=== PATIENT | female | born 1995 | race Hispanic/Latino ===

== ENCOUNTER 2017-05-28 14:38 | Emergency (ER) | payer BC ==
[2017-05-28 14:49] VITALS: BP 125/76; PULSE 116; RESP 18; TEMP 99.7; O2SAT 100
[2017-05-28] MEDS ORDERED: Morphine 4 MG/ML VIAL ONE (16:08)
--- NOTE | 2017-05-28 16:17 | ED PDOC ---
Lower Extremity Pain/Injury Time Seen by Provider: 05/28/17 14:43 Chief Complaint (Nursing): Lower Extremity Problem/Injury Chief Complaint (Provider): Lower Extremity Problem/Injury History Per: Patient History/Exam Limitations: no limitations Onset/Duration Of Symptoms: Sudden Onset Current Symptoms Are (Timing): Still Present Additional Complaint(s): 21 year old female presents to the emergency department with a complaint of left ankle injury status post rolling ankle inward while playing soccer prior to arrival. Patient reported 10/10 pain and swelling to left ankle with localized pain. PMD: none provided Past Medical History Reviewed: Historical Data, Nursing Documentation, Vital Signs Vital Signs: Last Vital Signs Temp 99.7 F H 05/28/17 14:47 Pulse 116 H 05/28/17 14:47 Resp 18 05/28/17 14:47 BP 125/76 05/28/17 14:47 Pulse Ox 100 05/28/17 14:47 - Medical History Other PMH: Polycystic ovary syndrome - Surgical History Surgical History: No Surg Hx - Family History Family History: States: Unknown Family Hx - Social History Current smoker - smoking cessation education provided: No Alcohol: None Drugs: Denies - Home Medications Home Medications: Ambulatory Orders Medication Instructions Recorded oxyCODONE/Acetaminophen [Percocet 1 ea PO Q6H PRN #15 tab 05/28/17 5/325 mg Tab] - Allergies Allergies/Adverse Reactions: Allergies Allergy/AdvReac Type Severity Reaction Status Date / Time No Known Allergies Allergy Verified 05/28/17 14:47 Review of Systems ROS Statement: Except As Marked, All Systems Reviewed And Found Negative Musculoskeletal: Positive for: Foot Pain (left-sided ankle with swelling) Physical Exam - Reviewed Nursing Documentation Reviewed: Yes Vital Signs Reviewed: Yes - Physical Exam Appears: Positive for: Non-toxic, Uncomfortable Extremity: Positive for: Tenderness (lateral left ankle), Swelling (lateral left ankle). Negative for: Normal ROM (left foot), Deformity (left foot or ankle) Neurologic/Psych: Positive for: Alert, Oriented, Mood/Affect (tearful) - ECG O2 Sat by Pulse Oximetry: 100 (RA) Pulse Ox Interpretation: Normal Medical Decision Making Medical Decision Making: Initial Impression: Left ankle injury Initial Plan: * Morphine 4mg IM * Xray ankle (left) Time: 1717 XR Left Ankle FINDINGS: BONES: There is a transverse fracture extending through distal on fibula with moderate overlying soft tissue swelling. Ankle mortise appears maintained. Talar dome intact. There is a joint effusion evident. JOINTS: As above. SOFT TISSUES: As above. OTHER FINDINGS: None. IMPRESSION: Transverse fracture extending through the distal fibula with moderate overlying soft tissue swelling and joint effusion. Ankle mortise maintained. No crutches given in ER, patient states she has them at home and does not want to be charged. Posterior splint placed by resident. Scribe Attestation: Documented by Swapna Davis, acting as a scribe for Amalia Cooley PA-C. Provider Scribe Attestation: All medical record entries made by the Scribe were at my direction and personally dictated by me. I have reviewed the chart and agree that the record accurately reflects my personal performance of the history, physical exam, medical decision making, and the department course for this patient. I have also personally directed, reviewed, and agree with the discharge instructions and disposition. Disposition - Clinical Impression Clinical Impression: Ankle fracture - Patient ED Disposition Is Patient to be Admitted: No - Disposition Referrals: Emigdio Sevilla III, MD [Staff Provider] - Disposition: Routine/Home Disposition Time: 18:28 Condition: GOOD Prescriptions: oxyCODONE/Acetaminophen [Percocet 5/325 mg Tab] 1 ea PO Q6H PRN #15 tab PRN Reason: Pain, Severe (8-10) Instructions: Ankle Fracture (DC) Forms: [employer] ([place])
--- NOTE | 2017-05-28 17:29 | RAD ---
PROCEDURE: Left Ankle Radiographs. HISTORY: Twisted ankle. COMPARISON: None FINDINGS: BONES: There is a transverse fracture extending through distal on fibula with moderate overlying soft tissue swelling. Ankle mortise appears maintained. Talar dome intact. There is a joint effusion evident. JOINTS: As above. SOFT TISSUES: As above. OTHER FINDINGS: None. IMPRESSION: Transverse fracture extending through the distal fibula with moderate overlying soft tissue swelling and joint effusion. Ankle mortise maintained.
--- NOTE | 2017-05-28 17:41 | CP.PCM.CON ---
History of Present Illness - History of Present Illness History of Present Illness: Ortho consult note - Dr. Sevilla 21 year old female PMHx PCOS presented to [facility] ED complaining of left lateral ankle pain. Patient hemodynamically stable and NAD. Boyfriend present at bedside. Patient states at approximately 1:45PM this afternoon, she was playing soccer and felt a "pop," in her ankle and fell over. Patient reports severe 10/ 10 pain to the outside of her ankle. Unable to bear weight onto LLE. Denies numbness, burning, tingling. Denies N/V/F/D/C/SOB. PMHx: PCOS PSH: none FH: non-contributory SH: occasional ETOH, denies tobacco/illicit drug use All: NKDA Review of Systems - Review of Systems All systems: reviewed and no additional remarkable complaints except (as per HPI ) Past Patient History - Infectious Disease Hx of Infectious Diseases: None - Past Social History Alcohol: None Drugs: Denies - CARDIAC Hx Cardiac Disorders: No - PULMONARY Hx Respiratory Disorders: No - HEENT Hx HEENT Problems: No - HEMATOLOGICAL/ONCOLOGICAL Hx Blood Disorders: No - GASTROINTESTINAL Hx Gastrointestinal Disorders: No - GENITOURINARY/GYNECOLOGICAL Hx Genitourinary Disorders: Yes Other/Comment: PCOS - PSYCHIATRIC Hx Psychophysiologic Disorder: No Hx Substance Use: No Meds Home Medications: Home Medication List Medication Instructions Recorded Confirmed Type oxyCODONE/Acetaminophen [Percocet 1 ea PO Q6H PRN #15 tab 05/28/17 Rx 5/325 mg Tab] Allergies/Adverse Reactions: Allergies Allergy/AdvReac Type Severity Reaction Status Date / Time No Known Allergies Allergy Verified 05/28/17 14:47 Physical Exam - Constitutional Appears: Well, Non-toxic, No Acute Distress - Extremities Exam Additional comments: LLE focused physical exam VASC: DP and PT pulses palpable 2/4. CFT <3 seconds to all digits x5. Temperature gradient warm to warm. Non-pitting edema noted to lateral malleolus. NEURO: Gross sensation intact. DERM: No open lesions noted. Ecchymosis noted to lateral malleolus. ORTHO: Pain on palpation lateral malleolus. No pain on palpation ATFL/PTFL/CFL. No pain upon tib-fib compression. No pain on palpation Achilles tendon, medial malleolus, styloid process. No pain upon calcaneal squeeze. - Neurological Exam Neurological exam: Alert, Oriented x3 - Psychiatric Exam Psychiatric exam: Normal Affect, Normal Mood Results - Vital Signs Recent Vital Signs: Last Vital Signs Temp 99.7 F H 05/28/17 14:47 Pulse 116 H 05/28/17 14:47 Resp 18 05/28/17 14:47 BP 125/76 05/28/17 14:47 Pulse Ox 100 05/28/17 16:21 Assessment & Plan - Assessment and Plan (Free Text) Assessment: 21 year old female with left lateral malleolus fracture, displaced Plan: Patient seen and evaluated Discussed with attending, Dr. Sevilla Left ankle XR reviewed: Transverse fracture extending through the distal fibula Recommend LLE CT, patient refused despite max. encouragement Posterior splint applied to LLE; patient to be NWB LLE with crutches RICE therapy Patient to keep splint clean/dry/intact until follow up with Dr. Sevilla Pain control per ED Follow up with Dr. Sevilla in office this 05/30/17
== END 2017-05-28 18:39 | disposition home or self-care (01) ==
LOC: H.ER 14:38 → SUPCPDRO 14:38 → H.ER 18:39
DX: S82.62XA Displaced fracture of lateral malleolus of left fibula, initial encounter for closed fracture (principal); X50.9XXA Other and unspecified overexertion or strenuous movements or postures, initial encounter; Y93.66 Activity, soccer; E28.2 Polycystic ovarian syndrome
CPT/HCPCS: 29515; 73610; 96372; 99282; J2270